=== PATIENT | male | born 1965 ===

== ENCOUNTER 2016-06-17 07:53 | Day surgery (SDC) | payer BC ==
[2016-06-17 08:31] VITALS: RESP 19; TEMP 97.3; O2SAT 100
[2016-06-17] MEDS ORDERED: Lidocaine Hydrochloride 5 ML INJ ONE (11:07)
[2016-06-17] MEDS ORDERED: Propofol 10 mg/ml Inj (20 ML) ONE (11:07)
[2016-06-17 12:26] VITALS: BP 125/68; PULSE 69
== END 2016-06-17 12:25 | disposition home or self-care (01) ==
LOC: C.ENDO 07:53
PROVIDERS: ATTEND Internal Medicine Gastroenterology
DX: Z12.11 Encounter for screening for malignant neoplasm of colon (principal); K57.30 Diverticulosis of large intestine without perforation or abscess without bleeding; K64.1 Second degree hemorrhoids
CPT/HCPCS: 45378; J2704